=== PATIENT | male | born 1945 | race Caucasian/White ===

== ENCOUNTER → 2016-11-27 | Outpatient (CLI) | payer MEDICARE, OTHER | LOC: RAD 14:33 | PROVIDERS: ATTEND Family Medicine | DX: S60.222D Contusion of left hand, subsequent encounter (principal); S68.022D Partial traumatic metacarpophalangeal amputation of left thumb, subsequent encounter; X58.XXXD Exposure to other specified factors, subsequent encounter | CPT/HCPCS: 73130 ==

== ENCOUNTER → 2016-12-15 | Outpatient (CLI) | payer MEDICARE, OTHER | LOC: LAB 14:39 | PROVIDERS: ATTEND Urology | DX: C61 Malignant neoplasm of prostate (principal) | CPT/HCPCS: 36415; 84153 ==

== ENCOUNTER → 2017-03-22 | Outpatient (CLI) | payer MEDICARE, OTHER ==
[~2017-03-22] MED LIST: CEPH-331 PO; METO-274 PO; OXYC-109 PO
== END ==
LOC: LAB 11:03
PROVIDERS: ATTEND Urology
DX: C61 Malignant neoplasm of prostate (principal)
CPT/HCPCS: 36415; 84153

== ENCOUNTER → 2017-03-29 | Outpatient (CLI) | payer MEDICARE, OTHER ==
[2017-03-29 12:43] LABS: ANION GAP 12.1 MEQ/L (3-15)
== END ==
LOC: RAD 12:12
PROVIDERS: ATTEND Urology
DX: R31.0 Gross hematuria (principal)
CPT/HCPCS: 36415; 80048

== ENCOUNTER → 2017-04-06 | Outpatient (CLI) | payer MEDICARE, OTHER ==
--- NOTE | 2017-04-06 10:55 | Diagnostic Imaging Report ---
PROCEDURE: CT abdomen and pelvis with and without contrast. TECHNIQUE: Precontrast acquisitions were acquired through the abdomen and pelvis. Multiple contiguous axial images were obtained through the abdomen and pelvis after the administration of intravenous contrast. INDICATION: Gross hematuria. COMPARISON: Comparison with 01/27/2011. FINDINGS: There is mild dependent atelectasis in the lung bases bilaterally. No pleural effusion or pericardial effusion. Mild hepatic steatosis noted. Bile ducts are not dilated. Gallbladder is absent. The pancreas is atrophic. The spleen is normal. The adrenal glands appear normal. Kidneys show no evidence of obstruction, masses or calculi. Renal outlines are smooth. There is normal enhancement of the abdominal organs and vessels following IV contrast. Aorta is atherosclerotic. No aneurysm. No evidence of dissection. The stomach and small bowel are not distended. Colon shows normal stool and gas pattern with no evidence of constipation. There is diverticulosis of the descending colon without evidence of diverticulitis. Delayed contrasted images show good opacification of the renal collecting system and ureters which appear normal. Bladder shows normal enhancement. Bladder wall is smooth. Prostate is not enlarged. There is noted ventral hernia just right of midline through the rectus muscle in the upper abdomen. The hernia defect is approximately 3 cm. Abdominal fat fills the umbilical hernia sac. No evidence of incarceration. IMPRESSION: 1. Kidneys appear normal without calculi or mass. No evidence of obstruction. Bladder is normal. 2. Diverticulosis without evidence of diverticulitis. 3. Ventral hernia just right of midline to the rectus muscle in the upper abdomen measuring 3 cm. There is fat within the hernia sac with no evidence of incarceration. Dictated by: Dictated on workstation # [id number]
== END ==
LOC: RAD 09:01
PROVIDERS: ATTEND Urology
DX: R31.0 Gross hematuria (principal); K57.90 Diverticulosis of intestine, part unspecified, without perforation or abscess without bleeding; K43.9 Ventral hernia without obstruction or gangrene
CPT/HCPCS: 74178; Q9967